=== PATIENT | female | born 1950 | race Caucasian/White ===

== ENCOUNTER 2016-04-18 10:31 | Outpatient (CLI) | payer BC ==
[~2016-04-18 10:31] MED LIST: AMBIEN5 MG PO; ANORO ELLIPTA IN; LISINOPRIL10 MG PO; MELATONIN1 TA1; PERCOCET1 TA4 PO; PROAIR HFA IN; SENNA-TABS8.6 MG PO; ZOFRAN4 MG PO
--- NOTE | 2016-04-18 13:45 | DIAGNOSTIC IMAGING REPORT ---
PROCEDURE: MG BILATERAL SCREENING W/CAD INDICATION: Screening. Family history breast carcinoma (aunt). TECHNIQUE: Bilateral CC and MLO digital views. COMPARISON: Compared to 02/01/2014, 01/04/2013, and 12/27/2012. FINDINGS: Computer-aided detection applied. Moderately dense and mildly nodular with a few dystrophic calcifications. No change. IMPRESSION: 1. Negative mammogram. RESULT CODE: 1- Negative. A. A negative report should not delay biopsy if a dominant or clinically suspicious mass is present. 10-15% of cancers are not identified by x-ray. B. A negative report may reinforce clinical impression. C. Adenosis and dense breasts may obscure an underlying neoplasm. D. False positive reports average 6-10%. E.. A yearly screening mammogram is recommended. A reminder letter will be scheduled.
== END 2016-04-18 23:00 ==
LOC: MAM SRH 10:31
DX: Z12.31 Encounter for screening mammogram for malignant neoplasm of breast (principal); Z80.3 Family history of malignant neoplasm of breast